=== PATIENT | female | born 1995 | race Asian ===

== ENCOUNTER 2019-08-02 11:32 | Inpatient (IN) | payer OTHER ==
[~2019-08-02] VITALS: Ht 160 cm; Wt 114.5 kg
[~2019-08-02 11:32] MED LIST: CEPH-368 PO
[2019-08-02] MEDS ORDERED: OXYTOCIN 30U/ 0.9% NaCL 500ML 500 ML IV PRN (13:11)
[2019-08-02] MEDS ORDERED: OXYTOCIN 30U/ 0.9% NaCL 500ML 500 ML IV ONE (13:11)
[2019-08-02] MEDS ORDERED: AMPICILLIN 2 GM in SODIUM CHLORIDE 0.9% 100 ML IVPB STA (13:11)
[2019-08-02] MEDS ORDERED: LIDOCAINE 1%, 20ML ONE (13:25)
[2019-08-02] MEDS ORDERED: NEWBORN KIT ONE (13:25)
[2019-08-02] MEDS ORDERED: OXYTOCIN 30U/ 0.9% NaCL 500ML 500 ML ONE (13:26)
[2019-08-02] MEDS ORDERED: MISOPROSTOL 200 MCG TABLET ONE (13:26)
[2019-08-02] MEDS ORDERED: TERBUTALINE 1 MG/ML, 1ML IVPush PRN (13:30)
[2019-08-02] MEDS ORDERED: METOCLOPRAMIDE 5 MG/ML, 2ML IVPush PRN (13:30)
[2019-08-02] MEDS: LACTATED RINGERS 1,000 ML IV SCH ×6 (13:30→22:14)
[2019-08-02] MEDS ORDERED: TERBUTALINE 1 MG/ML, 1ML SQ PRN (13:30)
[2019-08-02] MEDS ORDERED: FENTANYL PF 100 MCG/2ML IVPush PRN (13:30)
[2019-08-02] MEDS ORDERED: ONDANSETRON 2MG/ML, 2ML IVPush PRN (13:30)
[2019-08-02] MEDS ORDERED: FENTANYL PF 100 MCG/2ML IV PRN (13:30)
[2019-08-02] MEDS ORDERED: FENTANYL/BUPIV./NS/PF 250 ML EPIDCONT SCH ×2 (14:00→15:06)
[2019-08-02] MEDS ORDERED: LACTATED RINGERS 1,000 ML IVBOLUS PRN ×2 (14:00→15:30)
[2019-08-02] MEDS ORDERED: EPHEDRINE 50 MG/ML, 1ML IVPush PRN ×2 (14:00→15:30)
[2019-08-02 14:23] LABS: BASOPHILS # (AUTO) 0.02 x10^3/uL (0-0.1); BASOPHILS % (AUTO) 0 % (0-1); EOSINOPHILS # (AUTO) 0.04 x10^3/uL (0-0.4); EOSINOPHILS % (AUTO) 0 % (1-7); LYMPHOCYTES # (AUTO) 1.05 x10^3/uL (1-3.4); LYMPHOCYTES % (AUTO) 12 % (22-44); MD NO; MEAN CORPUSCULAR HEMOGLOBIN 25.8 pg (27.0-34.8); MEAN CORPUSCULAR HGB CONC 32.2 g/dL (32.4-35.8); MEAN CORPUSCULAR VOLUME 80.2 fL (80-100); MEAN PLATELET VOLUME 8.5 fL (7.4-10.4); MONOCYTES # (AUTO) 0.52 x10^3/uL (0.2-0.8); MONOCYTES % (AUTO) 6 % (2-9); NEUTROPHILS # (AUTO) 6.93 x10^3/uL (1.8-6.8); NEUTROPHILS % (AUTO) 81 % (42-75); PLATELET COUNT 259 x10^3/uL (130-400); RED BLOOD COUNT 4.55 x10^6/uL (3.82-5.3); RED CELL DISTRIBUTION WIDTH 15.7 % (9.6-15.2)
[2019-08-02] MEDS ORDERED: BUPIVACAINE IV SCH (14:30)
[2019-08-02] MEDS ORDERED: SODIUM CHLORIDE 0.9% IV SCH (14:30)
[2019-08-02] MEDS ORDERED: FENTANYL IV SCH (14:30)
[2019-08-02 14:32] LABS: ALANINE AMINOTRANSFERASE 14 U/L (12-78); ALBUMIN 2.4 g/dL (3.4-5.0); ANION GAP 6 mmol/L (5-15); CALCIUM 8.2 mg/dL (8.5-10.1); CHLORIDE 110 mmol/L (98-107)
[2019-08-02 14:35] LABS: ALKALINE PHOSPHATASE 124 U/L (45-117); BILIRUBIN,TOTAL 0.3 mg/dL (0.2-1.0); CREATININE 0.57 mg/dL (0.55-1.02); TOTAL PROTEIN 6.5 g/dL (6.4-8.2)
[2019-08-02] MEDS ORDERED: BUPIVACAINE 0.25% ONE (14:43)
[2019-08-02] MEDS ORDERED: LIDOCAINE/PF 1.5%-EPI 1:200K, 30ML ONE (14:50)
[2019-08-02] MEDS ORDERED: FENTANYL PF 500 MCG, BUPIVACAINE/PF 0.5%, 30ML 62.5 ML in SODIUM CHLORIDE 0.9% 177.5 ML IV SCH (15:00)
[2019-08-02] MEDS ORDERED: LACTATED RINGERS 1,000 ML IV SCH (15:06)
[2019-08-02] MEDS: D5%-LACTATED RINGERS 1,000 ML IV SCH ×2 (15:30→21:11)
[2019-08-02] MEDS: AMPICILLIN 1 GM in SODIUM CHLORIDE 0.9% 50 ML IVPB SCH ×2 (17:30→21:30)
[2019-08-02] MEDS ORDERED: TERBUTALINE 1 MG/ML, 1ML ONE (18:43)
[2019-08-02] MEDS ORDERED: SODIUM CITRATE/CITRIC ACID 30 ML UDC ONE ×2 (18:43→19:32)
[2019-08-02] MEDS ORDERED: METOCLOPRAMIDE 5 MG/ML, 2ML ONE ×2 (18:43→19:32)
[2019-08-02] MEDS ORDERED: LACTATED RINGERS 1,000 ML IVBOLUS ONE (19:00)
[2019-08-02] MEDS ORDERED: SODIUM CITRATE/CITRIC ACID 30 ML UDC PO ONE (19:00)
[2019-08-02] MEDS ORDERED: METOCLOPRAMIDE 5 MG/ML, 2ML IV ONE (19:00)
[2019-08-02] MEDS ORDERED: ONDANSETRON 2MG/ML, 2ML ONE (19:47)
[2019-08-02] MEDS ORDERED: CEFAZOLIN 1,000 MG ONE (19:47)
[2019-08-02] MEDS ORDERED: LIDOCAINE-MPF 2% ,5ML ONE ×2 (19:47)
[2019-08-02] MEDS ORDERED: OXYTOCIN 10 UNITS/ML, 1ML ONE (19:47)
[2019-08-02] MEDS ORDERED: FENTANYL PF 100 MCG/2ML ONE (19:47)
[2019-08-02] MEDS ORDERED: HYDROmorphone 2 MG/ML, 1ML ONE (19:47)
[2019-08-02] MEDS ORDERED: KETOROLAC 30 MG/1 ML ONE (21:12)
[2019-08-02] MEDS: OXYTOCIN 30U/ 0.9% NaCL 500ML 500 ML IV SCH (21:43)
[2019-08-02] MEDS ORDERED: ACETAMINOPHEN 325 MG TABLET PO PRN (22:00)
[2019-08-02] MEDS ORDERED: ONDANSETRON 2MG/ML, 2ML IV PRN (22:00)
[2019-08-02] MEDS ORDERED: METHYLERGONOVINE 0.2 MG/ML IM PRN (22:00)
[2019-08-02] MEDS ORDERED: SIMETHICONE 80 MG CHEW TAB PO PRN (22:00)
[2019-08-02] MEDS ORDERED: morphine SULFATE 10 MG/ML, 1ML IVPush PRN (22:00)
[2019-08-02 23:30] VITALS: BP 137/88
[2019-08-02] MEDS: OXYcodone/APAP 5/325MG TABLET PO PRN (23:55)
[2019-08-03 03:30] VITALS: BP 142/90
[2019-08-03] MEDS: KETOROLAC 30 MG/1 ML IV SCH ×3 (05:27→18:41)
[2019-08-03] MEDS: OXYcodone/APAP 5/325MG TABLET PO PRN ×3 (05:37→18:41)
[2019-08-03] MEDS: LACTATED RINGERS 1,000 ML IV SCH ×4 (05:43→17:43)
[2019-08-03] MEDS: OXYTOCIN 30U/ 0.9% NaCL 500ML 500 ML IV SCH ×2 (07:43→17:43)
[2019-08-03 08:15] VITALS: BP 131/86
[2019-08-03] MEDS: PRENATAL VIT/IRON/FA 1 EACH TABLET PO SCH (08:15)
[2019-08-03 12:19] VITALS: BP 129/84
[2019-08-03 19:46] LABS: BASOPHILS # (AUTO) 0.02 x10^3/uL (0-0.1); BASOPHILS % (AUTO) 0 % (0-1); EOSINOPHILS # (AUTO) 0.27 x10^3/uL (0-0.4); EOSINOPHILS % (AUTO) 2 % (1-7); LYMPHOCYTES % (AUTO) 12 % (22-44); MEAN CORPUSCULAR HEMOGLOBIN 26.1 pg (27.0-34.8); MEAN CORPUSCULAR HGB CONC 32.1 g/dL (32.4-35.8); MEAN CORPUSCULAR VOLUME 81.4 fL (80-100); MEAN PLATELET VOLUME 8.4 fL (7.4-10.4); MONOCYTES # (AUTO) 0.71 x10^3/uL (0.2-0.8); MONOCYTES % (AUTO) 6 % (2-9); NEUTROPHILS # (AUTO) 8.79 x10^3/uL (1.8-6.8); NEUTROPHILS % (AUTO) 79 % (42-75); PLATELET COUNT 243 x10^3/uL (130-400); RED BLOOD COUNT 3.61 x10^6/uL (3.82-5.3); RED CELL DISTRIBUTION WIDTH 16.1 % (9.6-15.2)
[2019-08-03 19:47] LABS: MD NO
[2019-08-03 20:00] VITALS: BP 128/88
[2019-08-04] MEDS: DOCUSATE 100 MG CAPSULE PO PRN ×3 (00:29→21:03)
[2019-08-04] MEDS: KETOROLAC 30 MG/1 ML IV SCH ×4 (00:29→12:40)
[2019-08-04] MEDS: OXYcodone/APAP 5/325MG TABLET PO PRN ×4 (00:30→21:06)
[2019-08-04] MEDS: LACTATED RINGERS 1,000 ML IV SCH ×3 (03:43→23:43)
[2019-08-04] MEDS: OXYTOCIN 30U/ 0.9% NaCL 500ML 500 ML IV SCH ×3 (03:43→23:43)
[2019-08-04 08:00] VITALS: BP 132/88
[2019-08-04] MEDS: PRENATAL VIT/IRON/FA 1 EACH TABLET PO SCH (09:00)
[2019-08-04] MEDS: IBUPROFEN 600 MG TABLET PO PRN ×2 (14:14→21:03)
[2019-08-04 20:00] VITALS: BP 127/89
[2019-08-05] MEDS: LACTATED RINGERS 1,000 ML IV SCH (01:03)
[2019-08-05] MEDS: OXYTOCIN 30U/ 0.9% NaCL 500ML 500 ML IV SCH (01:04)
[2019-08-05] MEDS: OXYcodone/APAP 5/325MG TABLET PO PRN ×2 (02:08→08:42)
[2019-08-05] MEDS: IBUPROFEN 600 MG TABLET PO PRN (08:40)
[2019-08-05] MEDS: DOCUSATE 100 MG CAPSULE PO PRN (08:40)
[2019-08-05] MEDS: PRENATAL VIT/IRON/FA 1 EACH TABLET PO SCH (08:40)
[2019-08-05 08:48] VITALS: BP 123/87
[2019-08-05] MEDS ORDERED: OXYC-302 PO (11:17)
[2019-08-05] MEDS ORDERED: IBUP-1222 PO (11:18)
[2019-08-05] MEDS ORDERED: FERR-51 PO (11:20)
[2019-08-05] MEDS ORDERED: DOCU-131 PO (11:21)
== END 2019-08-05 12:58 | disposition home or self-care (01) | DRG 788 ==
LOC: LDOP 11:32 → LDIP 13:28 → 2NW 23:26
PROVIDERS: ADMIT Obstetrics & Gynecology; ATTEND Obstetrics & Gynecology
PROC: 10D00Z1 Extraction of Products of Conception, Low, Open Approach (ICD-10-PCS; principal; 2019-08-02)
DX: O48.0 Post-term pregnancy (principal); O32.3XX0 Maternal care for face, brow and chin presentation, not applicable or unspecified; D64.9 Anemia, unspecified; O77.0 Labor and delivery complicated by meconium in amniotic fluid; Z37.0 Single live birth; Z3A.40 40 weeks gestation of pregnancy; O90.81 Anemia of the puerperium
CPT/HCPCS: 36415; J3490; J7121; 76805; 80053; 82570; 82803; 84156; 84550; 85025; 86850; 86900; G0378; J0290; J0690; J1170; J1885; J2405; J3010; J2590; J2765; J3105; J7120